=== PATIENT | male | born 1955 | race Caucasian/White ===

== ENCOUNTER 2019-12-02 08:29 | Day surgery (SDC) | payer OTHER ==
[~2019-12-02] VITALS: Ht 190.5 cm; Wt 122.3 kg
[~2019-12-02 08:29] MED LIST: ALBU90OI INH; ANTIBIOTIC; BENZ100A PO; NAUSEA MED; PRED10 PO; PSEU120ER PO; THERA1 EACH PO
[2019-12-02] MEDS ORDERED: CETI5 PO (09:42)
--- NOTE | 2019-12-02 09:44 | NUR ---
PT ADMITTED TO [facility]. AGREES WITH PLANNED SURGERY. LUNG SOUNDS CLEAR.
--- NOTE | 2019-12-02 13:42 | NUR ---
Patient up to Ambulate independently. Gait steady. Dressing to procedure site clean, dry, intact with no visible drainage, swelling, erythema or bruising noted. Discharge instructions reviewed with patient. Patient verbalizes understanding. Copy given to patient to take home. Patient States Post-Procedure ride home has been arranged. Discharged via wheelchair to private car for ride home.
--- NOTE | 2019-12-03 09:57 | NUR ---
12/03/19 0957 Yulisa Dorman VERIFICATIONS: EDIT CHART.
== END 2019-12-02 23:16 | disposition home or self-care (01) ==
LOC: ORSCMMR 08:29 → ORD 10:00 → ORSCMMR 23:16
PROVIDERS: Surgery
PROC: 0YU50JZ Supplement Right Inguinal Region with Synthetic Substitute, Open Approach (ICD-10-PCS; principal; 2019-12-02 10:00)
DX: K40.90 Unilateral inguinal hernia, without obstruction or gangrene, not specified as recurrent (principal)
CPT/HCPCS: C1781; J0690; J1100; J2250; J2405; J2704; J3010; J7120